=== PATIENT | female | born 1980 | race Caucasian/White ===

== ENCOUNTER 2022-09-28 05:19 | Emergency (ER) | payer OTHER ==
[~2022-09-28] VITALS: Ht 167.6 cm; Wt 72.7 kg
[2022-09-28 06:17] LABS: BASO # 0.02 K/mm3 (0.02-0.10); EOS # 0.08 K/mm3 (0.04-0.40); HEMATOCRIT 42.8 % (37.0-47.0); HEMOGLOBIN 14.3 g/dL (12.5-16.0); LYMPH# 2.14 K/mm3 (1.50-4.00); MEAN CELL VOLUME 91 fl (78-100); MEAN CORPUSCULAR HEMOGLOBIN 30 pg (27-31); MEAN CORPUSCULAR HGB CONC 33 g/dL (33-37); MEAN PLATELET VOLUME 11.2 fl (7.4-10.4); MONO # 0.51 K/mm3 (0.20-0.80); NEU # 5.56 K/mm3 (1.40-6.50); PLATELET COUNT 220 K/mm3 (130-400); RED BLOOD COUNT 4.73 M/mm3 (4.10-5.30); RED CELL DISTRIBUTION WIDTH 11.6 % (11.5-14.5); WHITE BLOOD COUNT 8.3 K/mm3 (4.8-10.8)
[2022-09-28 06:24] LABS: ALBUMIN 4.2 g/dL (3.5-5.0); POTASSIUM 4.2 mmol/L (3.5-5.1)
[2022-09-28 06:25] LABS: CALCIUM 9.7 mg/dL (8.3-10.5)
[2022-09-28 06:27] LABS: TOTAL PROTEIN 6.8 g/dL (6.4-8.3)
[2022-09-28 06:28] LABS: TOTAL BILIRUBIN 0.3 mg/dL (0.2-1.2)
[2022-09-28 08:18] LABS: D-DIMER 0.25 mg/L FEU (0.15-0.50)
[2022-09-28 10:45] VITALS: BP 111/64
== END 2022-09-28 10:46 | disposition home or self-care (01) ==
LOC: ED 05:19
PROVIDERS: Family Medicine
DX: R07.89 Other chest pain (principal)